=== PATIENT | female | born 1995 | race Two or more races ===

== ENCOUNTER 2016-05-20 17:29 | Emergency (ER) | payer OTHER ==
--- NOTE | ~2016-05-20 | ER ---
PATIENT'S NAME: [facility] AGE: 20 Y [address] ROOM: [place] [id number] LOCATION: [facility] ADMIT DATE: 05/20/2016 ER/Outpatient Report DISCHARGE DATE: 05/20/2016 FAMILY PHYSICIAN: Manuel Wilhelm MD ATTENDING PHYSICIAN: Guillermo Lopez Time of Arrival: 1729 hours. Time of Evaluation: 1729 hours. CHIEF COMPLAINT: Right leg pain and abdominal cramping. 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 She states she then fell down. She has pain in her lower back and on her right inner thigh area. She reports that she is approximately 7 weeks' . She is scheduled to see Dr. Manuel Wilhelm on 06/14/2016 for a first OB visit. She reports she is a primigravida. She denies having any nausea. She has no vomiting. States she has just generalized lower abdominal cramping. Did take some Tylenol a few hours ago for the back pain. Denies hitting her head. Did not have any loss of consciousness. ALLERGIES: NO KNOWN ALLERGIES. MEDICATIONS: No current medications. PAST MEDICAL HISTORY: Liver inflammation. PAST SURGICAL HISTORY: Negative. SOCIAL HISTORY: Denies use of tobacco, drugs, or alcohol. REVIEW OF SYSTEMS: Negative other than those mentioned in the HPI. PHYSICAL EXAMINATION: VITAL SIGNS: She weighs 74.9 kg. Blood pressure is 138/59, pulse of 84, respirations 18, temperature of 98.7, O2 saturation is 99% on room air. GENERAL: She is awake, alert, and oriented x4. PATIENT'S NAME: [facility] AGE: 20 Y [address] ROOM: [place] [id number] LOCATION: [facility] ADMIT DATE: 05/20/2016 ER/Outpatient Report DISCHARGE DATE: 05/20/2016 FAMILY PHYSICIAN: Manuel Wilhelm MD ATTENDING PHYSICIAN: Guillermo Lopez SKIN: Her skin is pink, warm, and dry. RESPIRATIONS: Even and nonlabored. Lung sounds are clear throughout. HEART: Regular rate and rhythm. ABDOMEN: Soft, nondistended. Bowel sounds are present. EXTREMETIES: She is tender in the right thigh, and bruising is noted to that area. She has strong pedal pulses. No pedal edema is noted. She did limp coming into the ER. LABORATORY DATA AND X-RAYS: Lab work was done. CBC does show a white count of 15.1, otherwise normal. Chem panel is within normal limits. Her HCG quantitative was 36,095. Her blood type is O negative. Clean-catch UA is positive for 25 leukocytes, otherwise negative. Ultrasound was completed. remediation technician reports a viable intrauterine , 6 weeks 5 days, heart rate of 130. No bleeding noted. Cervix is closed. No free fluid. X-ray of the right femur and knee was completed. No acute bony abnormalities are seen. IMPRESSION: 1. Contusion to the right thigh. 2. Intrauterine . PLAN: Home, rest. Ice to the right leg. Tylenol as needed for discomfort. Follow up with Dr. Manuel Wilhelm in the next 1 to 2 days. Discussed with her watching for increase in size of that thigh and a change in temperature and sensation to her right toes. She has good sensation at this time but discussed with her that if it changes, she needs to let Dr. Wilhelm know right away or return to the ER. She verbalized understanding. DAVON WILKINSON APRN FOR DO MINA MENDOZA/nerissa /[id number] d: [birth year] t: 05/30/16 1926, OUTPATIENT REPORT
[2016-05-20 18:02] LABS: BASOPHIL % 0.2 %; EOSINOPHIL # 0.1 K/uL (0.0-0.5); EOSINOPHIL % 0.4 %; HEMATOCRIT 36.6 % (33.0-46.0); HEMOGLOBIN 12.2 g/dL (11.0-15.0); IMMATURE GRANULOCYTE # 0.1 K/uL (0.0-0.3); IMMATURE GRANULOCYTE % 0.5 %; LYMPHOCYTE % 13.5 %; MCH 28.1 pg (27.0-34.0); MCHC 33.3 gm/dL (32.0-36.5); MCV 84.3 fl (83.0-98.0); MONOCYTE # 0.8 K/uL (0.0-1.0); MPV 9.2 fl (9.4-12.4); NEUTROPHIL # (ANC) 12.2 K/uL (1.8-7.8); NEUTROPHIL % 80.4 %; NRBC % 0 /100WBC (0-0.00); PLATELET COUNT 255 K/uL (150-450); RBC 4.34 M/uL (3.50-5.00); RDW-CV 12.8 % (11.9-14.6); WBC 15.1 K/uL (4.0-11.0)
[2016-05-20 18:22] LABS: ALBUMIN 3.8 gm/dL (3.5-5.0); ALK PHOS 58 IU/L (33-138); ALT 18 IU/L (12-78); ANION GAP 14.6 (10.0-19.0); AST 12 IU/L (10-40); BLOOD UREA NITROGEN 9 mg/dL (6-24); CALCIUM 8.6 mg/dL (8.5-10.5); CHLORIDE 107 mMol/L (96-110); CO2 22 mMol/L (22-32); CREATININE 0.6 mg/dL (0.5-1.1); ESTIMATED GFR (MDRD EQUATION) > 60; POTASSIUM 3.6 mMol/L (3.7-5.1); SODIUM 140 mMol/L (135-145); TOTAL BILIRUBIN 0.3 mg/dL (0.0-1.5); TOTAL PROTEIN 7.5 g/dL (6.0-8.4)
[2016-05-20 20:25] LABS: BILIRUBIN URINE NEGATIVE (NEGATIVE); BLOOD URINE NEGATIVE /UL (NEGATIVE); COLOR URINE YELLOW (YELLOW); GLUCOSE URINE NEGATIVE (NEGATIVE); KETONE URINE NEGATIVE (NEGATIVE); LEUKOCYTES URINE 25 /UL (NEGATIVE); NITRITE URINE NEGATIVE (NEGATIVE); PH URINE 6.5 (4.0-8.0); PROTEIN URINE NEGATIVE (NEGATIVE); TURBIDITY URINE CLEAR (CLEAR); UROBILINOGEN URINE NORMAL (NORMAL)
[2016-05-20 20:36] LABS: BACTERIA URINE RARE (NEGATIVE); RBC URINE NEGATIVE #/HPF (NEGATIVE); WBC URINE 0-2 #/HPF (NEGATIVE)
== END 2016-05-20 20:34 | disposition disaster alternative care site (69) ==
LOC: GACC 17:29
PROVIDERS: Emergency Medicine; Nurse Practitioner Family
DX: O9A.211 Injury, poisoning and certain other consequences of external causes complicating pregnancy, first trimester (principal); S70.11XA Contusion of right thigh, initial encounter; Z3A.01 Less than 8 weeks gestation of pregnancy; W55.22XA Struck by cow, initial encounter; Y92.69 Other specified industrial and construction area as the place of occurrence of the external cause; Y99.0 Civilian activity done for income or pay

== ENCOUNTER 2016-09-27 20:44 | Outpatient (CLI) | payer OTHER ==
[~2016-09-27] VITALS: Ht 160 cm; Wt 75.1 kg
--- NOTE | ~2016-09-27 | HP ---
[facility] AGE: 20 Y [address] ROOM: [place] [address] LOCATION: [facility] ADMIT DATE: 09/27/2016 History & Physical DISCHARGE DATE: FAMILY PHYSICIAN: Manuel Wilhelm MD ATTENDING PHYSICIAN: Lore Plata DATE OF SERVICE: CHIEF COMPLAINT: Bleeding. HISTORY OF PRESENT ILLNESS: Ana is a 20-year-old 1, para 0 female at 25 weeks gestation, who called me stating that she had bright red blood running out of her while she was showering. Since she showered, there is only a little bit of blood while wiping in the toilet paper. She has had some low back discomfort, but no cramps or contractions, and baby has been active. She has had no problems throughout her , no prior bleeding. She did have an ultrasound at 20 weeks that showed no evidence of placenta previa. She follows with Dr. Jevon Wilhelm. She denies any leaking of fluid. Last intercourse was 5 days ago. No dysuria. No bowel problems. Her LMP was on 04/03/2016, and her EDC is on 01/08/2017. Blood type O negative. PAST MEDICAL HISTORY: Operations: None. Hospitalizations: None. MEDICATIONS: vitamins. ALLERGIES: NONE. FAMILY HISTORY: Diabetes in father, maternal grandmother, paternal grandmother, and mother. SOCIAL HISTORY: Nonsmoker. Nondrinker. No history of illicit drugs. REVIEW OF SYSTEMS: ENT: Negative. CARDIOVASCULAR: Negative. RESPIRATORY: Negative. GI: Negative. [facility] AGE: 20 Y [address] ROOM: [place] [id number] LOCATION: [facility] ADMIT DATE: 09/27/2016 History & Physical DISCHARGE DATE: FAMILY PHYSICIAN: Manuel Wilhelm MD ATTENDING PHYSICIAN: Lore Plata : Negative. LAW ENFORCEMENT DIRECTOR: Currently 25 weeks by LMP, confirmed by early ultrasound. MUSCULOSKELETAL: Negative. PSYCH: History of anxiety. PHYSICAL EXAMINATION: GENERAL: A well-developed, well-nourished 20-year-old female, in no acute distress. She is alert, oriented, and cooperative. VITAL SIGNS: Stable. HEENT: Sclerae clear. Oropharynx is normal. Normal mucous membranes. HEART: Regular. LUNGS: Clear. ABDOMEN: Gravid, nontender. heart tones are moderate variability in the 130s, 140s. EXTREMITIES: Clear. No pitting edema. LAW ENFORCEMENT DIRECTOR: Normal external genitalia. Sterile speculum exam reveals normal mucous and cervix appears to be unremarkable. Some hyperemia of the squamocolumnar junction. White mucus is noted. Sterile glove exam reveals cervix to be closed, thick. Unable to determine presenting part. LABORATORY DATA: UA is pending. ASSESSMENT: Bleeding at 25 weeks gestation, uncertain etiology. PLAN: As long as UA looks clear, we will have her go home. Pelvic rest. Follow up with Dr. Jevon Wilhelm in 4 days as scheduled. Diet as tolerated. Return if increasing problems. Brochure is given. MD TILA KIMBROUGH/nerissa /[id number] D: [id number] T: [id number] HISTORY & PHYSICAL
[2016-09-27] MEDS ORDERED: PRENATAL 1+1)(P1 TAB PO (21:26)
[2016-09-27 22:55] LABS: BILIRUBIN URINE NEGATIVE (NEGATIVE); BLOOD URINE 10 /UL (NEGATIVE); COLOR URINE YELLOW (YELLOW); GLUCOSE URINE NEGATIVE (NEGATIVE); KETONE URINE NEGATIVE (NEGATIVE); LEUKOCYTES URINE 100 /UL (NEGATIVE); NITRITE URINE NEGATIVE (NEGATIVE); PROTEIN URINE NEGATIVE (NEGATIVE); SPEC GRAVITY URINE 1.015 (1.003-1.035); TURBIDITY URINE CLEAR (CLEAR); UROBILINOGEN URINE NORMAL (NORMAL)
[2016-09-27 23:02] LABS: BACTERIA URINE NEGATIVE (NEGATIVE); RBC URINE 0-2 #/HPF (NEGATIVE)
== END 2016-09-27 23:15 | disposition disaster alternative care site (69) ==
LOC: GOBM 20:44 → GOBS 20:44 → GOBM 23:15
PROVIDERS: Family Medicine
DX: O46.92 Antepartum hemorrhage, unspecified, second trimester (principal); Z3A.25 25 weeks gestation of pregnancy
CPT/HCPCS: G0463